=== PATIENT | female | born 1955 | race Caucasian/White ===

== ENCOUNTER 2017-05-13 06:20 | Emergency (ER) | payer OTHER ==
[~2017-05-13] VITALS: Ht 160 cm; Wt 58.1 kg
--- NOTE | 2017-05-13 06:32 | NUR ---
PT TAKEN TO BED 4
[2017-05-13 06:35] VITALS: BP 141/93
--- NOTE | 2017-05-13 06:36 | NUR ---
Dr. Bonner evaluating patient at bedside.
--- NOTE | 2017-05-13 06:39 | NUR ---
62Y/F PRESENTS TO ER C/O PAIN TO RT ANKLE/FOOT SINCE YESTERDAY. PMH OSTEOPOROSIS, ALLERGY VOLTERAN. PT STATES SHE WAS WALKING YESTERDAY AROUND 3PM AND "ROLLED" HER ANKLE ON UNEVEN PAVEMENT. PT DENIES FALLING, LOC. RT ANKLE IS SWOLLEN, SKIN INTACT, +CMS, PT STATES PAIN 2/10 W/O MOVEMENT , 8/10 WITH MOVEMENT, ACHING PAIN, NON RADIATING. PT IN BED, COMFORT NEEDS MET AT THIS TIME, ER MD AWARE OF PT STATUS.
[2017-05-13] MEDS ORDERED: SIMV20TA1 PO (06:40)
[2017-05-13] MEDS ORDERED: HYDROcodone/APAP 5/325 MG 1 TAB TAB PO ONE (06:40)
--- NOTE | 2017-05-13 06:56 | NUR ---
X-Ray at bedside.
[2017-05-13 07:10] VITALS: BP 141/93
--- NOTE | 2017-05-13 07:11 | NUR ---
Patient discharged with v/s stable. Written and verbal after care instructions given and explained. Patient alert, oriented and verbalized understanding of instructions. Ambulatory with steady gait. All questions addressed prior to discharge. ID band removed. Patient advised to follow up with PMD. Rx of tramadol 50mg given. Patient educated on indication of medication including possible reaction and side effects. Opportunity to ask questions provided and answered.
== END 2017-05-13 06:56 | disposition home or self-care (01) ==
LOC: MED 06:20
DX: S92.354A Nondisplaced fracture of fifth metatarsal bone, right foot, initial encounter for closed fracture (principal); Z79.899 Other long term (current) drug therapy; Z88.8 Allergy status to other drugs, medicaments and biological substances; X58.XXXA Exposure to other specified factors, initial encounter; Y93.01 Activity, walking, marching and hiking; Y92.89 Other specified places as the place of occurrence of the external cause; Y99.8 Other external cause status
CPT/HCPCS: 73630; 99284; Q0092